=== PATIENT | male | born 1980 | race Caucasian/White ===

== ENCOUNTER 2025-01-12 09:35 | Day surgery (SDC) | payer OTHER, BC, SELFPAY ==
--- NOTE | 2025-01-09 11:00 | EKG_ITS ---
[facility] Test Date: 2025-01-09 Pat Name: SAMANTHA RUDD Department: Room: - Gender: Male Video Game Creator: NABEEL : 1980 Requested By: Odessa Vasquez Order Number: [id number] Reading MD: Odessa Vasquez Measurements Intervals [place] Rate: 80 P: 32 TX: 171 QRS: -16 QRSD: 98 T: 33 QT: 387 QTc: 447 Interpretive Statements SINUS RHYTHM INCOMPLETE RIGHT BUNDLE BRANCH BLOCK [90+ ms QRS DURATION, TERMINAL R IN V1/V2, 40+ ms S IN I/aVL/V4/V5/V6] Compared to ECG 04/28/2024 12:23:40 Incomplete right bundle-branch block now present Sinus tachycardia no longer present Indeterminate axis no longer present /store/S0/[id number]/[id number].pdf
[2025-01-09 11:45] LABS: Alanine Aminotransferase 30 U/L (10-49); Albumin, Serum 4.2 gm/dL (3.5-5.0); Albumin/Globulin Ratio 1.6 (1.2-2.2); Alkaline Phosphatase 101 U/L (46-116); Anion Gap 5 (7-16); Aspartate Amino Transferase 21 U/L (0-34); BUN/Creatinine Ratio 10 Ratio (12-20); Bilirubin,Total 0.5 mg/dL (0.3-1.2); Blood Urea Nitrogen 11 mg/dL (9-23); Calcium 8.5 mg/dL (8.3-10.6); Calcium (Corrected) 8.5 mg/dL (8.5-10.1); Carbon Dioxide 28.6 mMol/L (20.0-31.0); Chloride 106 mMol/L (98-107); Creatinine (Component) 1.1 mg/dL (0.6-1.3); Globulin 2.6 gm/dL (2.3-3.5); Glucose 108 mg/dL (74-106); Osmolality,Calculated 279 (275-295); Potassium 4.1 mMol/L (3.4-5.1); Sodium 140 mMol/L (136-145); Total Protein 6.8 gm/dL (5.7-8.2); eGFR > 60 See Note
[2025-01-09 11:47] LABS: Partial Thromboplastin Time 29.4 Seconds (22.0-36.0)
[2025-01-12] VITALS (10 sets, daily range): BP systolic 154–209; BP diastolic 108–129; PULSE 64–92; RESP 12–17; TEMP 36.7–37; O2SAT 95–98; BMI 45.4
--- NOTE | 2025-01-12 10:14 | SUR.PREOP ---
Pt presented with elevated BP of 206/133 repeated twice and resulted as 209/[address] Tony, anesthesiologist was informed. No new order received. Per pt, his BP is normally in the 200's and he does not take his BP meds as prescribed. Pt was educated on the complication of not taking care of his BP. Pt stated he will call his primary care provider to discuss the care plan to take care of this matter. Pt stated that he has BP medication at home but feels that he may needs to change med.
[2025-01-12] MEDS: RINGERS LACTATED 1000 ML 1,000 ML 20 ML IV (11:54)
[2025-01-12] MEDS: hydrALAZINE INJ 20 MG/ML VIAL 10 MG IV ×2 (12:38→12:55)
--- NOTE | 2025-01-12 13:41 | SUR.PHASEII ---
1327 Pt D/C home, Anesthesia aware of pt high blood pressure and continue ok to DC home. Pt and s/o advised to follow up with PCP regarding chronic HTN. Pt and s/o aware pt has not been compliant with his HTN therapy. Advised to proceed to ER if symptoms arise due to HTN: [place], SOB, CP, dizziness and lethargy. Pt and s/o state they understand.
== END 2025-01-12 13:27 | disposition home or self-care (01) ==
PROVIDERS: PCP Nurse Practitioner Family; Referring Provider Specialist; Visit Provider Specialist
PROC: 0DBE8ZX Excision of Large Intestine, Via Natural or Artificial Opening Endoscopic, Diagnostic (ICD-10-PCS; CPT 45380; principal; 2025-01-12 11:45)
DX: K52.9 Noninfective gastroenteritis and colitis, unspecified (principal); K63.89 Other specified diseases of intestine; K62.89 Other specified diseases of anus and rectum; K64.9 Unspecified hemorrhoids; K57.30 Diverticulosis of large intestine without perforation or abscess without bleeding; I10 Essential (primary) hypertension; Z79.899 Other long term (current) drug therapy
CPT/HCPCS: 45380; 36415; 80053; 85610; 85730; 93005; A4649; J0360; J7120

== ENCOUNTER 2025-01-12 15:05 | Emergency (ER) | payer OTHER, BC, SELFPAY ==
--- NOTE | 2025-01-12 15:14 | XR_ITS ---
Examination: PA lateral chest 2 views TECHNIQUE: Upright PA lateral chest 2 views Exam date and time: January 12, 2025 1550 hours INDICATIONS: Chest pain today. FINDINGS: Normal heart size Reduced inspiratory effort Mild elevation right hemidiaphragm No lobar pneumonia or pulmonary edema IMPRESSION: No lobar pneumonia or pulmonary edema
--- NOTE | 2025-01-12 15:14 | EKG_ITS ---
[facility] Test Date: 2025-01-12 Pat Name: SAMANTHA RUDD Department: Room: - Gender: Male Clinical Support Tech: : 1980 Requested By: Abhishek French Order Number: [id number] Reading MD: Abhishek French Measurements Intervals [place] Rate: 80 P: 36 WI: 159 QRS: -7 QRSD: 110 T: 49 QT: 404 QTc: 468 Interpretive Statements SINUS RHYTHM LOW QRS VOLTAGE IN PRECORDIAL LEADS [QRS DEFLECTION < 1.0 mV IN CHEST LEADS] INCOMPLETE RIGHT BUNDLE BRANCH BLOCK [90+ ms QRS DURATION, TERMINAL R IN V1/V2, 40+ ms S IN I/aVL/V4/V5/V6] Compared to ECG 01/09/2025 11:03:49 Low QRS voltage now present /store/S0/[id number]/ecg/[id number].pdf
[2025-01-12 15:15] VITALS: BP 166/115; BP 183/115; PULSE 90; RESP 20; TEMP 36.9; O2SAT 98
--- NOTE | 2025-01-12 15:15 | PD.EDRME ---
Rapid Medical Screening Exam RME Arrival date/time: 01/12/25 15:05 44-year-old male with a history of hypertension presents to the emergency room with a chief complaint of dizziness, lightheadedness, palpitations, headache after a colonoscopy. Patient states he had elevated blood pressure during his colonoscopy today and the nurses gave him blood pressure medication. After the medication the patient began to have all of the symptoms. I have greeted and performed a focused initial assessment of this patient. A comprehensive ED assessment and evaluation of the patient, analysis of all test results, and completion of the medical decision making process will be conducted by additional ED providers. Chief Complaint: Arrhythmia/Palpitations Vital signs reviewed by provider: Yes
[2025-01-12 16:02] LABS: Basophils % (Auto) 0 % (0-2.5); Eosinophils # (Auto) 0.1 Thou/mm3 (0.0-0.5); Eosinophils % (Auto) 1 % (0-10); Hemoglobin 16.2 g/dL (13.5-16.0); Immature Granulocytes % (Auto) 1 % (0-0); Immature Granulocytes Auto 0.06 Thou/mm3 (0.00-0.00); Lymphocytes # (Auto) 1.4 Thou/mm3 (1.0-4.8); Lymphocytes % (Auto) 15 % (10-50); Mean Corpuscular Hemoglobin 27.8 pg (25.0-35.0); Mean Corpuscular Volume 77 fL (80-100); Monocytes # (Auto) 0.5 Thou/mm3 (0.0-0.8); Monocytes % (Auto) 6 % (0-12); Neutrophils # (Auto) 7.6 Thou/mm3 (1.8-7.7); Neutrophils % (Auto) 78 % (37-80); Nucleated Red Blood Cell % 0 /100 WBC (0); Platelet Count 184 Thou/mm3 (140-440); RDW Standard Deviation 34.5 fL (35.1-43.9); Red Blood Count 5.83 Miln/mm3 (4.50-5.90); White Blood Count 9.7 Thou/mm3 (3.8-10.6)
[2025-01-12 16:15] LABS: INR 1.1 (0.9-1.3); Partial Thromboplastin Time 26.4 Seconds (22.0-36.0); Prothrombin Time 11.8 Seconds (9.0-12.2)
[2025-01-12 16:19] LABS: Alanine Aminotransferase 35 U/L (10-49); Albumin, Serum 4.6 gm/dL (3.5-5.0); Albumin/Globulin Ratio 1.6 (1.2-2.2); Alkaline Phosphatase 100 U/L (46-116); Anion Gap 13 (7-16); Aspartate Amino Transferase 26 U/L (0-34); BUN/Creatinine Ratio 10 Ratio (12-20); Bilirubin,Total 0.8 mg/dL (0.3-1.2); Blood Urea Nitrogen 10 mg/dL (9-23); Calcium 9.1 mg/dL (8.3-10.6); Calcium (Corrected) 9.1 mg/dL (8.5-10.1); Carbon Dioxide 23.7 mMol/L (20.0-31.0); Chloride 102 mMol/L (98-107); Estimated Creatinine Clearance 143.6 mL/min (>60); Globulin 2.8 gm/dL (2.3-3.5); Glucose 135 mg/dL (74-106); Magnesium 1.7 mg/dL (1.6-2.6); Osmolality,Calculated 278 (275-295); Potassium 3.2 mMol/L (3.4-5.1); Sodium 139 mMol/L (136-145); Total Protein 7.4 gm/dL (5.7-8.2); Troponin I < 0.020 ng/mL (0.0-0.045); eGFR > 60 See Note
[2025-01-12 16:53] LABS: B-Type Natriuretic Peptide 45 pg/mL (0-100)
--- NOTE | 2025-01-12 17:03 | PC.NURSE ---
PT UPSET BECAUSE HE WAS HAVING TO WAIT. PT LEFT AMA, FORM SIGNED.
--- NOTE | 2025-01-12 17:16 | PC.NURSE ---
[email or web address] at this time
== END 2025-01-12 17:03 | disposition left against medical advice (07) ==
LOC: SERX 15:37
PROVIDERS: Nurse Practitioner Family; Emergency Provider Family Medicine; PCP Nurse Practitioner Family
DX: R42 Dizziness and giddiness (principal); R00.2 Palpitations; G44.40 Drug-induced headache, not elsewhere classified, not intractable; T46.5X5A Adverse effect of other antihypertensive drugs, initial encounter; Y92.530 Ambulatory surgery center as the place of occurrence of the external cause; I45.10 Unspecified right bundle-branch block; R07.9 Chest pain, unspecified; Z53.29 Procedure and treatment not carried out because of patient's decision for other reasons
CPT/HCPCS: 36415; 71046; 80053; 80307; 81001; 83735; 83880; 84484; 85025; 85610; 85730; 93005; 99281

== ENCOUNTER → 2025-05-18 | Outpatient (CLI) | payer OTHER, BC, SELFPAY ==
[2025-05-18 13:07] LABS: Basophils # (Auto) 0.0 Thou/mm3 (0.0-0.2); Basophils % (Auto) 1 % (0-2.5); Eosinophils # (Auto) 0.2 Thou/mm3 (0.0-0.5); Eosinophils % (Auto) 4 % (0-10); Hematocrit 40.6 % (41.0-53.0); Hemoglobin 14.4 g/dL (13.5-16.0); Immature Granulocytes Auto 0.03 Thou/mm3 (0.00-0.00); Lymphocytes # (Auto) 1.6 Thou/mm3 (1.0-4.8); Lymphocytes % (Auto) 34 % (10-50); Mean Corpuscular HGB Conc 35.5 g/dl (31.0-37.0); Mean Corpuscular Hemoglobin 27.7 pg (25.0-35.0); Mean Corpuscular Volume 78 fL (80-100); Monocytes # (Auto) 0.3 Thou/mm3 (0.0-0.8); Monocytes % (Auto) 7 % (0-12); Neutrophils # (Auto) 2.6 Thou/mm3 (1.8-7.7); Neutrophils % (Auto) 54 % (37-80); Nucleated Red Blood Cell # 0.00 Thou/mm3 (0.00-0.00); Nucleated Red Blood Cell % 0 /100 WBC (0); Platelet Count 170 Thou/mm3 (140-440); RDW Standard Deviation 34.1 fL (35.1-43.9); Red Blood Count 5.19 Miln/mm3 (4.50-5.90); White Blood Count 4.8 Thou/mm3 (3.8-10.6)
[2025-05-18 13:56] LABS: Alanine Aminotransferase 45 U/L (10-49); Albumin, Serum 4.0 gm/dL (3.5-5.0); Albumin/Globulin Ratio 1.7 (1.2-2.2); Alkaline Phosphatase 150 U/L (46-116); Anion Gap 10 (7-16); Aspartate Amino Transferase 29 U/L (0-34); BUN/Creatinine Ratio 7 Ratio (12-20); Bilirubin,Total 0.6 mg/dL (0.3-1.2); Blood Urea Nitrogen 8 mg/dL (9-23); Calcium 9.1 mg/dL (8.3-10.6); Calcium (Corrected) 9.1 mg/dL (8.5-10.1); Carbon Dioxide 26.3 mMol/L (20.0-31.0); Cardiac Risk Estimate 7.9 RATIO (4.0-6.7); Chloride 101 mMol/L (98-107); Cholesterol 221 mg/dL (132-200); Creatinine (Component) 1.2 mg/dL (0.6-1.3); Free T4 (Free Thyroxine) 1.39 ng/dL (0.89-1.76); Globulin 2.3 gm/dL (2.3-3.5); Glucose 328 mg/dL (74-106); HDL Cholesterol 28 mg/dL (40-60); Osmolality,Calculated 285 (275-295); Potassium 3.8 mMol/L (3.4-5.1); Sodium 137 mMol/L (136-145); Thyroid Stimulating Hormone 2.27 uIU/mL (0.55-4.78); Total Protein 6.3 gm/dL (5.7-8.2); Triglycerides 885 mg/dL (30-150); eGFR > 60 See Note
[2025-05-18 13:59] LABS: Glucose Estimated Average 269 mg/dL (80-131); Hemoglobin A1C 11.0 % Hgb (4.8-6.0)
[2025-05-21 06:51] LABS: Renin Activity, Plasma* 0.38 ng/mL/h (0.25-5.82)
[2025-05-25 09:17] LABS: Aldosterone* 6 ng/dL
== END | disposition home or self-care (01) ==
LOC: COPL 11:54
PROVIDERS: PCP Internal Medicine; Referring Provider Internal Medicine Cardiovascular Disease; Visit Provider Internal Medicine
DX: I10 Essential (primary) hypertension (principal); E66.9 Obesity, unspecified; G47.33 Obstructive sleep apnea (adult) (pediatric); R35.89 Other polyuria; R81 Glycosuria; R79.9 Abnormal finding of blood chemistry, unspecified
CPT/HCPCS: 36415; 80053; 80061; 82088; 83036; 84244; 84439; 84443; 85025

== ENCOUNTER → 2025-06-17 | Outpatient (CLI) | payer OTHER, BC, SELFPAY ==
[2025-06-17 12:43] LABS: Glucose Estimated Average 200 mg/dL (80-131); Hemoglobin A1C 8.6 % Hgb (4.8-6.0)
[2025-06-17 12:48] LABS: Cardiac Risk Estimate 4.2 RATIO (4.0-6.7); Cholesterol 160 mg/dL (132-200); HDL Cholesterol 38 mg/dL (40-60); LDL Cholesterol,Calculated 91 mg/dL (0-130); Triglycerides 155 mg/dL (30-150)
== END | disposition home or self-care (01) ==
LOC: COPL 10:46
PROVIDERS: PCP Nurse Practitioner Family; Referring Provider Internal Medicine Cardiovascular Disease; Visit Provider Internal Medicine Cardiovascular Disease
DX: E78.1 Pure hyperglyceridemia (principal); I10 Essential (primary) hypertension; E66.01 Morbid (severe) obesity due to excess calories; E11.9 Type 2 diabetes mellitus without complications
CPT/HCPCS: 36415; 80061; 83036